=== PATIENT | male | born 1985 | race Caucasian/White ===

== ENCOUNTER 2017-02-07 12:55 | Emergency (ER) | payer SELFPAY ==
[~2017-02-07] VITALS: Ht 172.7 cm; Wt 64.0 kg
[2017-02-07 13:01] VITALS: Ht 172.7 cm; Wt 64.0 kg
[2017-02-07] MEDS ORDERED: SOD CHLORIDE 0.9% 1,000 ML IV STA (13:12)
[2017-02-07 13:46] LABS: ADD SCAN DIFF NO
[2017-02-07 13:55] VITALS: BP 90/49; PULSE 69; RESP 18
[2017-02-07 13:58] LABS: BASOPHILS % 0.5 % (0.0-2.0); EOSINOPHILS # 0.1 10^3/ul (0.0-0.5); EOSINOPHILS % 1.9 % (0.0-7.0); HEMATOCRIT 43.9 % (42.0-52.0); HEMOGLOBIN 15.4 g/dl (14.0-18.0); LYMPHOCYTES # 3.4 10^3/ul (0.8-2.9); LYMPHOCYTES % 44.9 % (15.0-51.0); MEAN CORPUSCULAR HEMOGLOBIN 29.8 pg (29.0-33.0); MEAN CORPUSCULAR HGB CONC 35.1 g/dl (32.0-37.0); MEAN CORPUSCULAR VOLUME 84.9 fl (82.0-101.0); MEAN PLATELET VOLUME 10.5 fl (7.4-10.4); MONOCYTE # 0.5 10^3/ul (0.3-0.9); MONOCYTES % 7.1 % (0.0-11.0); NEUTROPHIL # 3.4 10^3/ul (1.6-7.5); NEUTROPHILS % 45.3 % (39.0-77.0); PLATELET COUNT 279 10^3/UL (140-415); RED BLOOD COUNT 5.17 10^6/ul (4.70-6.10); RED CELL DISTRIBUTION WIDTH 12.5 % (11.5-14.5); WHITE BLOOD COUNT 7.5 10^3/ul (4.8-10.8)
--- NOTE | 2017-02-07 13:58 | RADRPT ---
PROCEDURE: CT Brain without contrast. CLINICAL INDICATION: Altered mental status. Alcohol use. TECHNIQUE: Axial images from the skull base through the vertex without IV contrast. Multiplanar r eformatted images were made. Images were reviewed on a PACS workstation. The CTDIvol is 45.01 mGy and the DLP is 720.23 mGycm. One or more of the following dose reduction techniques were used: auto mated exposure control, adjustment of the mA and/or kV according to patient size, or use of iterativ e reconstruction technique. COMPARISON: None. FINDINGS: The ventricles and cisterns are normal for age. There is no evidence for territorial infarction or intracranial hemorrhage. No mass or midline shift is seen. No extra-axial fluid collection is seen . The visualized paranasal sinuses and mastoids are clear. IMPRESSION: No definite acute intracranial abnormality. RPTAT: [facility] Physician Meghana Date Time Electronically viewed and signed by Heather Echeverria Physician on 02/07/2017 13:58 GIULIANO/
[2017-02-07 14:19] LABS: ALBUMIN 4.9 g/dl (3.3-4.9); ALBUMIN/GLOBULIN RATIO 1.88; BILIRUBIN,INDIRECT 0.2 mg/dl (0-1.1); BILIRUBIN,TOTAL 0.2 mg/dl (0.2-1.3); CALCIUM 9.1 mg/dl (8.4-10.2); CREATININE 0.83 mg/dl (0.61-1.24); POTASSIUM 3.5 mmol/L (3.5-5.1); TOTAL PROTEIN 7.5 g/dl (6.1-8.1)
--- NOTE | 2017-02-07 14:42 | ERD ---
ER Documentation Chief Complaint Date/Time DATE: 02/07/17 TIME: 14:40 Chief Complaint BIB [facility] FOR ETOH , FALL DENIES ANY PAIN HPI This a 32-year-old male who states that he is not sure why he is here. The patient states that he was drinking beer this morning early and that he had a long night. He said he was walking home when he stumbled and fell on the sidewalk but did not hit his head and have any loss of consciousness. Bystanders saw the fall called EMS. Patient says he has no headache no neck pain or chest pain back pain. Denies any drug use denies any psychiatric history or suicidal thoughts. Patient says he feels fine. No loss of consciousness at scene ROS All systems reviewed and are negative except as per history of present illness. Medications Home Meds Unable to Obtain Active Prescriptions or Reported Meds Allergies Allergies: Coded Allergies: No Known Allergy (Unverified , 02/07/17) PMhx/Soc Medical and Surgical Hx: pt denies Medical Hx, pt denies Surgical Hx Hx Alcohol Use: Yes Hx Substance Use: No Hx Tobacco Use: No Smoking Status: Never smoker FmHx Family History: No coronary disease Physical Exam Vitals Vital Signs Date Time Temp Pulse Resp B/P Pulse Ox O2 Delivery O2 Flow Rate FiO2 02/07/17 13:55 69 18 90/49 99 Nasal Cannula 2.0 02/07/17 13:01 98.1 76 18 109/67 98 Physical Exam Const: Well-developed, well-nourished Head: Atraumatic, normocephalic Eyes: Normal Conjunctiva, PERRLA, EOMI, normal sclera, no nystagmus ENT: Normal External Ears, Nose and Mouth, moist mucus membranes. Neck: Full range of motion. No meningismus, no lymphadenopathy. Resp: Clear to auscultation bilaterally, no wheezing, rhonchi, rales Cardio: Regular rate and rhythm, no murmurs, S1 S2 present Abd: Soft, non tender x 4, non distended. Normal bowel sounds, no guarding or rebound, no pulsitile abdominal masses or bruits Skin: No petechiae or rashes, no ecchymosis , no maculopapular rash Back: No midline or flank tenderness Ext: No cyanosis, or edema, FROM x 4, normal inspection, neurovascularly intact x 4 Neur: Awake and alert, STR 5/5 x 4, sensation intact x 4, no focal findings, cerebellum intact Psych: Normal Mood and Affect Result Diagram: 02/07/17 1320 02/07/17 1320 Results 24 hrs Laboratory Tests Test 02/07/17 13:20 White Blood Count 7.510^3/ul Red Blood Count 5.1710^6/ul Hemoglobin 15.4g/dl Hematocrit 43.9% Mean Corpuscular Volume 84.9fl Mean Corpuscular Hemoglobin 29.8pg Mean Corpuscular Hemoglobin Concent 35.1g/dl Red Cell Distribution Width 12.5% Platelet Count 77242^3/UL Mean Platelet Volume 10.5fl Neutrophils % 45.3% Lymphocytes % 44.9% Monocytes % 7.1% Eosinophils % 1.9% Basophils % 0.5% Nucleated Red Blood Cells % 0.0/100WBC Neutrophils # 3.410^3/ul Lymphocytes # 3.410^3/ul Monocytes # 0.510^3/ul Eosinophils # 0.110^3/ul Basophils # 0.010^3/ul Nucleated Red Blood Cells # 0.010^3/ul Sodium Level 137mmol/L Potassium Level 3.5mmol/L Chloride Level 104mmol/L Carbon Dioxide Level 23mmol/L Anion Gap 14 Blood Urea Nitrogen 15mg/dl Creatinine 0.83mg/dl Glucose Level 90mg/dl Calcium Level 9.1mg/dl Total Bilirubin 0.2mg/dl Direct Bilirubin 0.00mg/dl Indirect Bilirubin 0.2mg/dl Aspartate Amino Transf (AST/SGOT) 43IU/L Alanine Aminotransferase (ALT/SGPT) 64IU/L Alkaline Phosphatase 88IU/L Total Protein 7.5g/dl Albumin 4.9g/dl Globulin 2.60g/dl Albumin/Globulin Ratio 1.88 Ethyl Alcohol Level 157.0mg/dl Current Medications Medications (Trade) Dose Ordered Sig/Patric Route PRN Reason Start Time Stop Time Status Last Admin Dose Admin Sodium Chloride (NS) 1,000 ml @ 1,000 mls/hr Q1H STAT IV 02/07/17 13:12 02/07/17 14:11 DC 02/07/17 13:26 Procedures/MDM PROCEDURE: CT Brain without contrast. CLINICAL INDICATION: Altered mental status. Alcohol use. TECHNIQUE: Axial images from the skull base through the vertex without IV contrast. Multiplanar reformatted images were made. Images were reviewed on a PACS workstation. The CTDIvol is 45.01 mGy and the DLP is 720.23 mGycm. One or more of the following dose reduction techniques were used: automated exposure control, adjustment of the mA and/or kV according to patient size, or use of iterative reconstruction technique. COMPARISON: None. FINDINGS: The ventricles and cisterns are normal for age. There is no evidence for territorial infarction or intracranial hemorrhage. No mass or midline shift is seen. No extra-axial fluid collection is seen. The visualized paranasal sinuses and mastoids are clear. IMPRESSION: No definite acute intracranial abnormality. RPTAT: [facility] Physician Meghana Date Time Electronically viewed and signed by Heather Echeverria Physician on 02/07/2017 13 :58 LE/ CC: LIZET TREJO DO Patient is refusing to stay in the ER. He will get registration information. Patient said he is leaving and does not want his test results as he feels fine he will not sign the AMA. Refused to sign anything and left the ER premises CT scan of brain shows no acute normality. He is slightly intoxicated. Blood work looks normal. Departure Diagnosis: Primary Impression: Alcoholic intoxication Complication of substance-induced condition: with unspecified complication Qualified Code: F10.129 - Alcoholic intoxication, with unspecified complication Condition: Stable LIZET TREJO DO Feb 07, 2017 14:42
== END 2017-02-07 14:32 | disposition left against medical advice (07) ==
LOC: E/R 12:55
DX: F10.129 Alcohol abuse with intoxication, unspecified (principal); R41.82 Altered mental status, unspecified
CPT/HCPCS: 36415; 70450; 80053; 80306; 85025; 99285; J7030